=== PATIENT | female | born 1940 | race Caucasian/White ===

== ENCOUNTER 2020-10-03 10:08 | Inpatient (IN) ==
--- NOTE | 2020-10-03 10:20 | Emergency Department Note ---
Altered Mental Status HPI General Chief Complaint: Altered Mental Status Stated Complaint: altered mental Time Seen by Provider: 10/03/20 10:15 Source: patient, RN notes reviewed and old records reviewed Mode of arrival: EMS Limitations: altered mental status History of Present Illness HPI Narrative: Narrative: 80-year-old female was found on the floor this she was awake and alert conscious responding to verbal stimuli but was unable to stand up. Her last seen normal was night prior to arrival. Patient was transferred via EMS to emergency department. History is from EMS patient is unable to give history at this point in time. MD complaint: altered mental status, confusion, decreased responsiveness and weakness Onset (ago): day(s) (Last seen normal night prior to arrival) Severity: moderate Consistency of Symptoms: unknown Context: unknown Related Data Home Medications Medication Instructions Recorded Confirmed benazepril 20 mg tablet 20 mg PO BID tab 11/14/14 06/11/20 calcium carbonate 600 mg calcium 1,800 mg PO QDAY tab 11/14/14 06/11/20 (1,500 mg) tablet cholecalciferol (vitamin D3) 25 1,000 unit PO QDAY cap 11/14/14 06/11/20 mcg (1,000 unit) capsule omega-3 fatty acids-vitamin E 1,000 mg PO QDAY cap 11/14/14 06/11/20 1,000 mg capsule propafenone 150 mg tablet 225 mg PO Q8H 07/30/15 06/11/20 acetaminophen 1,000 mg PO Q6H PRN 10/03/20 10/03/20 divalproex [Depakote Sprinkles] 125 mg PO TID 10/03/20 10/03/20 furosemide 20 mg PO QAM 10/03/20 10/03/20 gabapentin 100 mg PO TID 10/03/20 10/03/20 polyethylene glycol 3350 [Miralax] 17 g PO QDAY 10/03/20 10/03/20 potassium chloride 10 meq PO QDAY 10/03/20 10/03/20 Previous Rx's Medication Instructions Recorded dexamethasone 6 mg tablet 6 mg PO QDAY #7 tab 03/20/20 diltiazem HCl 120 mg 120 mg PO BID #180 cap 04/09/20 capsule,extended release 24 hr, controlled lorazepam 0.5 mg tablet 0.5 mg PO BID PRN #60 tab 04/10/20 apixaban 5 mg tablet 5 mg PO Q12H #180 tab 04/23/20 clonidine HCl 0.1 mg tablet 0.1 mg PO BID #180 tab 04/23/20 chlorthalidone 25 mg tablet 25 mg PO QDAY #30 tab 06/11/20 Allergies Allergy/AdvReac Type Severity Reaction Status Date / Time Amoxicillin Allergy Severe Swelling Verified 06/11/20 15:14 of Lip/Tongue/Throat Review of Systems ROS ROS Narrative: Narrative: Limitations: ROS unobtainable due to patients medical condition PFSH Narrative Patient History Narrative: Narrative: Medical/Surgical/Family History All Active Problems (Updated 10/03/20 @ 13:36 by Sam Mckeon MD) CHF (congestive heart failure) (Acute) Pneumonia (Acute) Shingles (Acute) Cognitive impairment (Acute) Cervicalgia (Acute) Urinary tract infection (Acute) Hx of bladder cancer (Acute) Venous insufficiency (Acute) Hypertension (Acute) Weight loss (Acute) Erythrocytosis (Chronic) Subclavian artery stenosis, left (Chronic) Hot flashes due to menopause (Chronic) Arthralgia of right hip (Acute) care home current use of anticoagulant therapy (Chronic) Mild cognitive impairment (Chronic) On hormone replacement therapy (Chronic) Encounter for Health Maintenance Examination in Adult (Chronic) Eye Problem (Acute) Ecchymosis (Acute) History of tubal ligation (Acute) History of cystoscopy (Acute) History of colonoscopy (Acute) History of cardioversion (Acute) History of appendectomy (Acute) Contact with and exposure to tuberculosis (Acute) History of tobacco use (Acute) Osteopenia (Chronic) Hx of malignant neoplasm of urinary organ (Chronic) 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 Carotid bruit Left; asymptomatic. Stable US November 2010--every other year sequencing. Cervicalgia Cognitive impairment Colonic polyp 01/01/11 Colonoscopy--Dr. Emanuel--Essentially normal colon; H/O minor diverticular disease; past H/O adenomatous polyps. 5-year sequence. Contact with and exposure to tuberculosis Questionable exposure to tuberculosis in a cousin in the distant past. No clinical history for same. No previous skin testing; chest x-rays have been normal. Degenerative arthritis Knees and hips. Takes Aleve, No history of inflammatory arthritis. Diverticulitis of colon 01/01/11 Colonoscopy--Dr. Emanuel--Essentially normal colon; H/O minor diverticular disease; past H/O adenomatous polyps. 5-year sequence. Episode of probable clinical diverticulitis 12/2010. Dyspnea 06/2012; Mild decrease in exercise tolerance; exertional. Ecchymosis rt suborbital Encounter for Health Maintenance Examination in Adult Eye Problem rt suborbital eccymosis History of cardioversion 12/16/12 Successful cardioversion to sinus rhythm from atrial fibrillation. History of tobacco use Distant ex-smoker, stopping in 1994. Stable chest x-ray 2008. Immunizations up to date. Does not require routine screening. Hx of malignant neoplasm of urinary organ Hypertension Hypertension, essential Stable resting ECG 2008. ECG updated 06/25/12. care home current use of anticoagulant therapy Malignant neoplasm of posterior wall of urinary bladder last cysto 09/2016 Mild cognitive impairment inc ataxia On hormone replacement therapy Osteopenia Bone density 06/17/2004 Spine T-score -2.9. Bone Density 08/19/2007 Spine T- score -2; Hip T-score -1.8. On appropritate calcium and vitamin D. Vitamin D level 08/27/09 stable at 36.4 Venous insufficiency Surgical History History of appendectomy In the distant past. History of colonoscopy 01/01/11 Colonoscopy--Dr. Emanuel--Essentially normal colon; H/O minor diverticular disease; past H/O adenomatous polyps in 2002. 5-year sequence. History of cystoscopy History of tubal ligation Family History Unknown Dementia A number of older family members Essential hypertension Unspecified Pulmonary tuberculosis Cousin Social History Smoking Status: Never smoker Alcohol Intake Frequency: a few times a month Substance Use: does not use Exam Narrative Narrative: Narrative: General Limitations: altered mental status General appearance: Present lethargic Head Head: Present atraumatic, normocephalic and normal inspection Eye Eye: Present normal appearance, PERRL and EOMI; Absent scleral icterus and conjunctival injection ENT ENT: Present normal oropharynx and mucous membranes dry Neck Neck: Present normal inspection, full ROM, trachea midline and other (Positive JVD); Absent tenderness, lymphadenopathy and thyromegaly Chest Chest: Present normal inspection and symmetric chest wall rise; Absent tenderness Respiratory Respiratory: Present rales/crackles; Absent respiratory distress, wheezes, stridor, accessory muscle use and prolonged expiratory phase Cardiovascular Cardiovascular: Present regular rate, normal rhythm and systolic murmur; Absent diastolic murmur Adbominal Abdominal: Present soft; Absent distention, tenderness, guarding, rebound, rigidity, organomegaly and mass Extremities Extremities: Present full ROM, normal capillary refill, pedal edema and pretibial edema; Absent calf tenderness Back Back: Present normal inspection; Absent tenderness, CVA tenderness (R), CVA tenderness (L) and spinous process tenderness Expanded Neurological Patient oriented to: Present person Speech: Present fluid speech Motor strength - LUE: 5/5 Motor strength - RUE: 5/5 Motor strength - LLE: 5/5 Motor strength - RLE: 5/5 UPPER MOTOR NEURON EXAM: Babinski sign: Normal Coma Scale Eye Opening: To Voice Coma Scale Motor Response: Localizes to Pain Coma Scale Verbal Response: Confused Coma Scale Total: 12 Skin Skin: Present warm (WNL) and dry Course Vital Signs Vital signs: Vital Signs Pulse Rate 74 10/03/20 10:09 Respiratory Rate 16 10/03/20 10:09 Blood Pressure 146/74 10/03/20 10:09 Pulse Oximetry (%) 91 10/03/20 10:09 Pulse Rate 118 H 10/03/20 11:35 Respiratory Rate 20 10/03/20 11:32 Blood Pressure 131/88 10/03/20 11:32 Pulse Oximetry (%) 90 10/03/20 11:35 [facility] Narrative Medical decision making narrative: Narrative: Patient with congestive heart failure and pneumonia troponin. Patient's and A. fib on EKG with nonischemic current of injury. Patient received IV Lasix and after blood cultures IV Rocephin. Discussed patient with Dr. Garcia who graciously agreed to admission. Differential Diagnosis Differential Diagnosis: CVA TIA sepsis pneumonia congestive heart failure hypoglycemia hyperglycemi Medical Records Medical records reviewed: Yes I reviewed the patient's medical records. Lab Data Lab results reviewed: Yes I reviewed the patient's lab results. Lab results narrative: Sodium is 131 patient received Lasix IV patient's BNP is elevated to 2083 and troponin is elevated. Result diagrams: 10/03/20 10:39 10/03/20 10:39 Labs: Lab Results 10/03/20 10/03/20 10/03/20 Range/Units 10:20 10:39 10:39 WBC 8.0 (4.5-11.0) K/mcL RBC 4.02 (4.00-5.20) M/mcL Hgb 12.4 (12.0-15.0) g/dL Hct 37.7 (36.0-48.0) % MCV 93.8 (80.0-100.0) fL MCH 30.8 (26.0-34.0) pg MCHC 32.9 (31.0-36.0) g/dL RDW 14.1 (11.5-14.5) % Plt Count 246 (140-440) K/mcL MPV 10.2 (7.4-10.4) fL Neut % (Auto) 56.4 (38.0-78.0) % Lymph % (Auto) 21.2 (15.0-49.0) % [place] % (Auto) 19.1 H (1.0-12.0) % Eos % (Auto) 2.9 (0.0-7.0) % Baso % (Auto) 0.4 (0.0-2.0) % Lymph # (Auto) 1.69 (1.50-4.80) K/mcL [place] # (Auto) 1.52 H (0.10-0.90) K/mcL Eos # (Auto) 0.23 (0.00-0.70) K/mcL Baso # (Auto) 0.03 (0.00-0.20) K/mcL Absolute Neutrophils 4.49 (1.80-8.00) K/mcL VBG Lactic Acid (0.5-2.0) mmol/L Sodium 131 L (133-145) mmol/L Potassium 3.2 L (3.3-5.1) mmol/L Chloride 90 L (96-108) mmol/L Carbon Dioxide 31 H (22-30) mmol/L Anion Gap 10.0 (8.0-16.0) BUN 19 (8-23) mg/dL Creatinine 1.0 (0.6-1.1) mg/dL GFR Calculation 53 Glucose 93 (70-105) mg/dL Calcium 9.8 (8.6-10.4) mg/dL Total Bilirubin 0.3 (0.1-1.0) mg/dL AST 18 (<32) U/L ALT 10 (<40) U/L Alkaline Phosphatase 78 (39-117) U/L Total Creatine Kinase 75 (24-170) U/L Troponin T (<0.03) ng/mL NT-Pro-B Natriuret Pep 2085.0 H (<450.0) pg/mL Total Protein 6.8 (5.9-8.4) gm/dL Albumin 3.5 (3.2-5.2) gm/dL Globulin 3.3 (2.2-3.7) gm/dL Albumin/Globulin Ratio 1.1 (1.0-2.3) Urine Color Yellow Urine Appearance Clear (Clear) Urine pH 5.0 (5.0-9.0) Ur Specific [place] 1.020 (1.000-1.035) Urine Protein Negative (Negative) mg/dL Urine Glucose (UA) Negative (Negative) mg/dL Urine Ketones Trace A (Negative) mg/dL Urine Occult Blood Negative (Negative) malathi/mcL Urine Nitrate Negative (Negative) Urine Bilirubin Negative (Negative) mg/dL Urine Urobilinogen Normal mg/dL Ur Leukocyte Esterase Trace A (Negative) /ug Urine RBC < 1 (0-3) /hpf Urine WBC 3 (0-4) /hpf Ur Squamous Epith Cells < 1 (0-4) /hpf Urine Bacteria None (0) /hpf Hyaline Casts 35 H (0-2) /lph Urine Mucus Few A (None) /hpf Ur Culture Indicated? No 10/03/20 10/03/20 Range/Units 10:39 10:39 WBC (4.5-11.0) K/mcL RBC (4.00-5.20) M/mcL Hgb (12.0-15.0) g/dL Hct (36.0-48.0) % MCV (80.0-100.0) fL MCH (26.0-34.0) pg MCHC (31.0-36.0) g/dL RDW (11.5-14.5) % Plt Count (140-440) K/mcL MPV (7.4-10.4) fL Neut % (Auto) (38.0-78.0) % Lymph % (Auto) (15.0-49.0) % [place] % (Auto) (1.0-12.0) % Eos % (Auto) (0.0-7.0) % Baso % (Auto) (0.0-2.0) % Lymph # (Auto) (1.50-4.80) K/mcL [place] # (Auto) (0.10-0.90) K/mcL Eos # (Auto) (0.00-0.70) K/mcL Baso # (Auto) (0.00-0.20) K/mcL Absolute Neutrophils (1.80-8.00) K/mcL VBG Lactic Acid 1.4 (0.5-2.0) mmol/L Sodium (133-145) mmol/L Potassium (3.3-5.1) mmol/L Chloride (96-108) mmol/L Carbon Dioxide (22-30) mmol/L Anion Gap (8.0-16.0) BUN (8-23) mg/dL Creatinine (0.6-1.1) mg/dL GFR Calculation Glucose (70-105) mg/dL Calcium (8.6-10.4) mg/dL Total Bilirubin (0.1-1.0) mg/dL AST (<32) U/L ALT (<40) U/L Alkaline Phosphatase (39-117) U/L Total Creatine Kinase (24-170) U/L Troponin T 0.12 H* (<0.03) ng/mL NT-Pro-B Natriuret Pep (<450.0) pg/mL Total Protein (5.9-8.4) gm/dL Albumin (3.2-5.2) gm/dL Globulin (2.2-3.7) gm/dL Albumin/Globulin Ratio (1.0-2.3) Urine Color Urine Appearance (Clear) Urine pH (5.0-9.0) Ur Specific [place] (1.000-1.035) Urine Protein (Negative) mg/dL Urine Glucose (UA) (Negative) mg/dL Urine Ketones (Negative) mg/dL Urine Occult Blood (Negative) malathi/mcL Urine Nitrate (Negative) Urine Bilirubin (Negative) mg/dL Urine Urobilinogen mg/dL Ur Leukocyte Esterase (Negative) /ug Urine RBC (0-3) /hpf Urine WBC (0-4) /hpf Ur Squamous Epith Cells (0-4) /hpf Urine Bacteria (0) /hpf Hyaline Casts (0-2) /lph Urine Mucus (None) /hpf Ur Culture Indicated? Radiology Data Radiology results narrative: Head CT is with chronic ischemic changes no acute changes chest x-ray is right basilar infiltrate and congestive heart failure. EKG Data EKG #1: EKG attestation: Yes I reviewed and interpreted this EKG. Rate: normal (87) Rhythm: A.Fib Eleanor/QRS: RBBB and LAHB/LAFB Ectopy: PVC Interpretation: nonspecific ST-T wave changes Pulse Oximetry Data Pulse Ox %: 90 Interpretation: 90% on room air slightly hypoxic for this patient. Discharge Plan Patient/Caregiver Discharge Instructions Pt seen by DISPATCH MACHINE RUNNER/PA only: No Clinical Impression: Atrial fibrillation, CHF (congestive heart failure), Pneumonia Patient Disposition: Xfer As Inpt ([facility]) Follow up with: Jossue Mason ARNP [Primary Care Provider] - Prescriptions: No Action diltiazem HCl [DILT-XR] 120 mg capsule,ext.rel 24h degradable 120 mg PO BID Qty: 180 RF: 2 lorazepam 0.5 mg tablet 0.5 mg PO BID PRN (Reason: agitation) Qty: 60 RF: 1 Eliquis 5 mg tablet 5 mg PO Q12H Qty: 180 RF: 1 clonidine HCl 0.1 mg tablet 0.1 mg PO BID Qty: 180 RF: 1 calcium carbonate 600 mg (1,500 mg) tablet 1,800 mg PO QDAY RF: 0 cholecalciferol (vitamin D3) 1,000 unit capsule 1,000 unit PO QDAY RF: 0 benazepril 20 mg tablet 20 mg PO BID RF: 0 omega-3 fatty acids-vitamin E 1,000 mg capsule 1,000 mg PO QDAY RF: 0 dexamethasone 6 mg tablet 6 mg PO QDAY Qty: 7 RF: 0 chlorthalidone 25 mg tablet 25 mg PO QDAY Qty: 30 RF: 0 propafenone 150 mg tablet 225 mg PO Q8H RF: 0
[2020-10-03 11:49] LABS: Appearance,Urine Clear (Clear); Bilirubin,Urine Negative (Negative); Color,Urine Yellow; Culture Indicated,Urine No; Glucose,Urine (UA) Negative (Negative); Ketones,Urine Trace mg/dL (Negative); Leukocyte Esterase,Urine Trace /ug (Negative); Mucus,Urine FEW /hpf; Nitrate,Urine Negative (Negative); Protein,Urine Negative (Negative); Urine Blood Negative ery/mcL (Negative); Urine Hyaline Cast 35 /lph (0-2); Urine RBC < 1 /hpf (0-3); Urine Squamous Epithelial Cell < 1 /hpf (0-4); Urine WBC 3 /hpf (0-4); Urobilinogen,Urine Normal
[2020-10-03 11:50] LABS: Basophils # (Auto) 0.03 K/mcL (0.00-0.20); Basophils % (Auto) 0.4 % (0.0-2.0); Eosinophils # (Auto) 0.23 K/mcL (0.00-0.70); Eosinophils % (Auto) 2.9 % (0.0-7.0); Hematocrit 37.7 % (36.0-48.0); Hemoglobin 12.4 g/dL (12.0-15.0); Lymphocytes # (Auto) 1.69 K/mcL (1.50-4.80); Lymphocytes % (Auto) 21.2 % (15.0-49.0); Mean Cell Volume 93.8 fL (80.0-100.0); Mean Corpuscular HGB Conc 32.9 g/dL (31.0-36.0); Mean Platelet Volume 10.2 fL (7.4-10.4); Monocytes # (Auto) 1.52 K/mcL (0.10-0.90); Monocytes % (Auto) 19.1 % (1.0-12.0); Neutrophils % (Auto) 56.4 % (38.0-78.0); Platelet Count 246 K/mcL (140-440); RBC 4.02 M/mcL (4.00-5.20); Red Cell Distribution Width 14.1 % (11.5-14.5)
--- NOTE | 2020-10-03 11:51 | Cat Scan Report ---
CLINICAL INFORMATION: Altered mental status COMPARISON: Head CT 11/19/2016 TECHNIQUE: 2.5 mm helical slices were obtained in the skull base to vertex. Following reconstruction, axial reformatted images were reviewed at bone and parenchymal windows. The exam was performed using radiation dose optimization techniques including, but not limited to, automated exposure control, adjustment of the mA and/or kV according to patient size and use of iterative reconstruction technique. FINDINGS: The ventricles, sulci, fissures, and cisterns are symmetrically enlarged compatible with moderate age-related atrophy. The atrophy has worsened considerably since the comparison CT approximately four years ago. Extensive chronic ischemic changes in the deep cerebral white matter have also progressed.. There is no intracerebral hemorrhage, mass effect, edema or other acute finding. Bone windows show no osseous abnormality. IMPRESSION: Moderate atrophy with extensive chronic ischemic changes in the deep cerebral white matter progressing considerably since comparison study four years prior. No acute disease Interpreted and Authenticated by: Vicente De La Rosa 10/03/20
--- NOTE | 2020-10-03 11:55 | XRay Report ---
CLINICAL INFORMATION: Low P O2 COMPARISON: 06/11/2020 FINDINGS: The heart is moderately enlarged - increased. Mediastinum is unremarkable. Pulmonary vessels are mildly distended. Moderate right basilar infiltrate is developing. There is a 19 mm rounded pneumonia or nodule in the left upper lobe. This is new. No effusion IMPRESSION: Mild CHF. Moderate right basilar infiltrate 19 mm rounded pneumonia versus nodule in the left upper lobe. Suggest two-view upright chest x-ray when patient returns to clinical baseline in the next 2-3 weeks. Interpreted and Authenticated by: Vicente De La Rosa 10/03/20
[2020-10-03] MEDS ORDERED: diphenhydrAMINE 50 MG/ML VIAL IV ONE (12:01)
[2020-10-03] MEDS ORDERED: cefTRIAXone 1 GM VIAL IV ONE (12:01)
[2020-10-03 12:13] LABS: ALT/SGPT 10 U/L (<40); AST/SGOT 18 U/L (<32); Albumin 3.5 gm/dL (3.2-5.2); Albumin/Globulin Ratio 1.1 (1.0-2.3); Alkaline Phosphatase 78 U/L (39-117); Bilirubin,Total 0.3 mg/dL (0.1-1.0); Blood Urea Nitrogen 19 mg/dL (8-23); Calcium 9.8 mg/dL (8.6-10.4); Carbon Dioxide 31 mmol/L (22-30); Chloride 90 mmol/L (96-108); Creatine Kinase 75 U/L (24-170); Globulin 3.3 gm/dL (2.2-3.7); Glomerular Filtration Rate 53; Glucose 93 mg/dL (70-105)
[2020-10-03] MEDS ORDERED: FUROSEMIDE 40 MG/4 ML VIAL IV ONE (12:22)
--- NOTE | 2020-10-03 12:25 | EKG ---
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 Measurements Intervals [place] Rate: 78 P: [place]: QRS: 108 QRSD: 135 T: -8 QT: 417 QTc: 476 Interpretive Statements Atrial fibrillation Ventricular premature complex RBBB and LPFB Baseline wander in lead(s) I,II,aVR,aVL,aVF,V1,V2,V3,V4,V5,V6 NO PRIOR TRACING FOR COMPARISON ABNORMAL ECG Electronically Signed On 10-03-2020 12:24:46 PDT by Jamil Andersen M.D. /[id number]
--- NOTE | 2020-10-03 13:45 | EKG ---
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 Measurements Intervals [place] Rate: 83 P: [place]: QRS: 113 QRSD: 118 T: 13 QT: 413 QTc: 486 Interpretive Statements Atrial fibrillation Paired ventricular premature complexes Incomplete right bundle branch block and LPIB Nonspecific T abnormalities, lateral leads ST elevation, consider inferior injury Since previous ECG of 10-03-2020, 1029, SHORTER QRSD ABNORMAL ECG Electronically Signed On 10-03-2020 13:44:50 PDT by Jamil Andersen M.D. /[email or web address]/[id number]
--- NOTE | 2020-10-03 16:16 | Internal Med History&Physical ---
HPI History of Present Illness Patient information: Note initiated : 10/03/20 at 4:07 pm Service Date, if different from initiated Date: [] Patient: Britta Uribe a 80 y/o F admitted on for altered mental. Chief Complaint: Found on the floor History of present illness: Ms. Uribe is a 80 year old female with advanced dementia resident of a longterm home brought to emergency room after she was found down this morning. Her last seen normal was night prior to arrival. The patient was found on the floor this morning and she was awake and alert conscious responding to verbal stimuli but was unable to stand up. Patient brought to emergency room by EMS. At baseline she is alert oriented to her name only and had advanced dementia. Patient's son Brien and other family members at the bedside. Patient denies chest pain shortness of breath dizziness lightheadedness. She cannot give any history due to her advanced dementia. In the emergency room she was found to be in atrial fibrillation with RVR. Her CT scan of the head showed no acute finding. Chest x-ray showed moderate right basilar infiltrate. Patient has minimal elevation of troponin 0 0.12 and elevated BNP. She has history of systolic congestive heart failure Review of Systems ROS unobtainable: due to mental status Review of systems: Unable to obtain review of systems due to patient's advanced dementia. However she denies chest pain shortness of breath nausea vomiting abdominal pain, extremity pain. PFSH PFSH All Active Problems CHF (congestive heart failure) (Acute) Pneumonia (Acute) Shingles (Acute) Cognitive impairment (Acute) Cervicalgia (Acute) Urinary tract infection (Acute) Hx of bladder cancer (Acute) Venous insufficiency (Acute) Hypertension (Acute) Weight loss (Acute) Erythrocytosis (Chronic) Subclavian artery stenosis, left (Chronic) Hot flashes due to menopause (Chronic) Arthralgia of right hip (Acute) shelter current use of anticoagulant therapy (Chronic) Mild cognitive impairment (Chronic) On hormone replacement therapy (Chronic) Encounter for Health Maintenance Examination in Adult (Chronic) Eye Problem (Acute) Ecchymosis (Acute) History of tubal ligation (Acute) History of cystoscopy (Acute) History of colonoscopy (Acute) History of cardioversion (Acute) History of appendectomy (Acute) Contact with and exposure to tuberculosis (Acute) History of tobacco use (Acute) Osteopenia (Chronic) Hx of malignant neoplasm of urinary organ (Chronic) Malignant neoplasm of posterior wall of urinary bladder (Chronic) Hypertension, essential (Chronic) Dyspnea (Acute) Diverticulitis of colon (Acute) Degenerative arthritis (Acute) Colonic polyp (Acute) Carotid bruit (Acute) Atrial fibrillation (Chronic) Medical History Atrial fibrillation New onset first noted 06/2012. Carotid bruit Left; asymptomatic. Stable US November 2010--every other year sequencing. Cervicalgia Cognitive impairment Colonic polyp 01/01/11 Colonoscopy--Dr. Emanuel--Essentially normal colon; H/O minor diverticular disease; past H/O adenomatous polyps. 5-year sequence. Contact with and exposure to tuberculosis Questionable exposure to tuberculosis in a cousin in the distant past. No clinical history for same. No previous skin testing; chest x-rays have been normal. Degenerative arthritis Knees and hips. Takes Aleve, No history of inflammatory arthritis. Diverticulitis of colon 01/01/11 Colonoscopy--Dr. Emanuel--Essentially normal colon; H/O minor diverticular disease; past H/O adenomatous polyps. 5-year sequence. Episode of probable clinical diverticulitis 12/2010. Dyspnea 06/2012; Mild decrease in exercise tolerance; exertional. Ecchymosis rt suborbital Encounter for Health Maintenance Examination in Adult Eye Problem rt suborbital eccymosis History of cardioversion 12/16/12 Successful cardioversion to sinus rhythm from atrial fibrillation. History of tobacco use Distant ex-smoker, stopping in 1994. Stable chest x-ray 2008. Immunizations up to date. Does not require routine screening. Hx of malignant neoplasm of urinary organ Hypertension Hypertension, essential Stable resting ECG 2008. ECG updated 06/25/12. shelter current use of anticoagulant therapy Malignant neoplasm of posterior wall of urinary bladder last cysto 09/2016 Mild cognitive impairment inc ataxia On hormone replacement therapy Osteopenia Bone density 06/17/2004 Spine T-score -2.9. Bone Density 08/19/2007 Spine T- score -2; Hip T-score -1.8. On appropritate calcium and vitamin D. Vitamin D level 08/27/09 stable at 36.4 Venous insufficiency Surgical History History of appendectomy In the distant past. History of colonoscopy 01/01/11 Colonoscopy--Dr. Emanuel--Essentially normal colon; H/O minor diverticular disease; past H/O adenomatous polyps in 2002. 5-year sequence. History of cystoscopy History of tubal ligation Family History Unknown Dementia A number of older family members Essential hypertension Unspecified Pulmonary tuberculosis Cousin Social History household members: alone housing: house lives independently: Yes marital status: occupational status: retired occupation: Insurance alcohol intake frequency: a few times a month substance use type: does not use MEDS/ALLERGIES Home Medications and Allergies Home Medications Medication Instructions Recorded Confirmed Type benazepril 20 mg tablet 20 mg PO BID tab 11/14/14 10/03/20 History calcium carbonate 600 mg calcium 1,800 mg PO TID tab 11/14/14 06/11/20 History (1,500 mg) tablet cholecalciferol (vitamin D3) 25 1,000 unit PO QDAY cap 11/14/14 10/03/20 History mcg (1,000 unit) capsule omega-3 fatty acids-vitamin E 1,000 mg PO QDAY cap 11/14/14 10/03/20 History 1,000 mg capsule propafenone 150 mg tablet 225 mg PO Q8H 07/30/15 10/03/20 History dexamethasone 6 mg tablet 6 mg PO QDAY #7 tab 03/20/20 06/11/20 Rx diltiazem HCl 120 mg 120 mg PO BID #180 cap 04/09/20 10/03/20 Rx capsule,extended release 24 hr, controlled lorazepam 0.5 mg tablet 0.5 mg PO BID PRN #60 tab 04/10/20 10/03/20 Rx apixaban 5 mg tablet 5 mg PO Q12H #180 tab 04/23/20 10/03/20 Rx clonidine HCl 0.1 mg tablet 0.1 mg PO BID #180 tab 04/23/20 10/03/20 Rx chlorthalidone 25 mg tablet 25 mg PO QDAY #30 tab 06/11/20 10/03/20 Rx acetaminophen 1,000 mg PO Q6H PRN 10/03/20 10/03/20 History divalproex [Depakote Sprinkles] 125 mg PO TID 10/03/20 10/03/20 History furosemide 20 mg PO QAM 10/03/20 10/03/20 History gabapentin 100 mg PO TID 10/03/20 10/03/20 History polyethylene glycol 3350 [Miralax] 17 g PO QDAY 10/03/20 10/03/20 History potassium chloride 10 meq PO QDAY 10/03/20 10/03/20 History Allergies Allergy/AdvReac Type Severity Reaction Status Date / Time Amoxicillin Allergy Severe Swelling Verified 06/11/20 15:14 of Lip/Tongue/Throat EXAM Constitutional Vitals: Pulse Resp BP Pulse Ox 108 H 29 H 156/134 92 10/03/20 15:38 10/03/20 15:38 10/03/20 15:38 10/03/20 15:38 General appearance: average body habitus (Patient is calm), cooperative and no acute distress Head Head exam: Present atraumatic, normal inspection and normocephalic Eye Eye exam: Present EOMI, normal appearance and PERRL Neck Neck exam: Present full ROM and normal inspection Respiratory Additional comments: Fine basilar crackles bilaterally. No wheezing. No respiratory distress. No hypoxia. Cardiovascular Cardiovascular exam: Present normal rate and rhythm, +S1 and +S2; Absent diastolic murmur and systolic murmur GI/Abdominal GI/Abdominal exam: Present normal bowel sounds and soft; Absent hernia, mass, rebound and tenderness Extremities Exam Extremities exam: Present full ROM, normal capillary refill and normal inspection; Absent calf tenderness and joint swelling Back Exam Back exam: Present full ROM Neurological Exam Neurological exam: Present alert, altered, CN II-XII intact and reflexes normal Additional comments: Patient is awake. She is alert oriented to her name only. She moves all extremities. Cranial 2 through 12 grossly intact. Motor intact Psychiatric Psychiatric exam: Present normal affect and normal mood Skin Skin exam: Present dry, normal color and warm DATA Data Completed and Pending Labs: Labs from last 24 hours 10/03/20 10/03/20 10/03/20 13:36 10:39 10:39 WBC RBC Hgb Hct MCV MCH MCHC RDW Plt Count MPV Neut % (Auto) Lymph % (Auto) [place] % (Auto) Eos % (Auto) Baso % (Auto) Lymph # (Auto) [place] # (Auto) Eos # (Auto) Baso # (Auto) Absolute Neutrophils VBG Lactic Acid 1.4 Sodium Potassium Chloride Carbon Dioxide Anion Gap BUN Creatinine GFR Calculation Glucose Calcium Total Bilirubin AST ALT Alkaline Phosphatase Total Creatine Kinase Troponin T 0.12 H* 0.12 H* NT-Pro-B Natriuret Pep Total Protein Albumin Globulin Albumin/Globulin Ratio Urine Color Urine Appearance Urine pH Ur Specific Clark Urine Protein Urine Glucose (UA) Urine Ketones Urine Occult Blood Urine Nitrate Urine Bilirubin Urine Urobilinogen Ur Leukocyte Esterase Urine RBC Urine WBC Ur Squamous Epith Cells Urine Bacteria Hyaline Casts Urine Mucus Ur Culture Indicated? 10/03/20 10/03/20 10/03/20 10:39 10:39 10:20 WBC 8.0 RBC 4.02 Hgb 12.4 Hct 37.7 MCV 93.8 MCH 30.8 MCHC 32.9 RDW 14.1 Plt Count 246 MPV 10.2 Neut % (Auto) 56.4 Lymph % (Auto) 21.2 [place] % (Auto) 19.1 H Eos % (Auto) 2.9 Baso % (Auto) 0.4 Lymph # (Auto) 1.69 [place] # (Auto) 1.52 H Eos # (Auto) 0.23 Baso # (Auto) 0.03 Absolute Neutrophils 4.49 VBG Lactic Acid Sodium 131 L Potassium 3.2 L Chloride 90 L Carbon Dioxide 31 H Anion Gap 10.0 BUN 19 Creatinine 1.0 GFR Calculation 53 Glucose 93 Calcium 9.8 Total Bilirubin 0.3 AST 18 ALT 10 Alkaline Phosphatase 78 Total Creatine Kinase 75 Troponin T NT-Pro-B Natriuret Pep 2085.0 H Total Protein 6.8 Albumin 3.5 Globulin 3.3 Albumin/Globulin Ratio 1.1 Urine Color Yellow Urine Appearance Clear Urine pH 5.0 Ur Specific Clark 1.020 Urine Protein Negative Urine Glucose (UA) Negative Urine Ketones Trace A Urine Occult Blood Negative Urine Nitrate Negative Urine Bilirubin Negative Urine Urobilinogen Normal Ur Leukocyte Esterase Trace A Urine RBC < 1 Urine WBC 3 Ur Squamous Epith Cells < 1 Urine Bacteria None Hyaline Casts 35 H Urine Mucus Few A Ur Culture Indicated? No A/P Narrative A/P Narrative: 80 years old female with advanced dementia who lives in a longterm home brought to emergency room after she was found down in her apartment. #Found down. Suspect syncope. -No obvious signs or symptoms of trauma. CT scan of the head no acute finding -CPK 75. -Currently awake alert oriented to her name which is her baseline. Continue to monitor on telemetry # Pneumonia by CxR. No clinical indicator for Pneumonia. - CxR Moderate right basilar infiltrate - No fever, chills, Cough, Sputum, WBC. - I will hold on treating with Anbx for now. #Atrial fibrillation with rapid ventricular rate. -Patient has history of A. fib/a flutter in the past. She has history of cardioversion. -Her last echocardiogram in the system is from 2016 with normal ejection fraction. -Resume home diltiazem, propafenone and Eliquis. #Elevated BNP/troponin. -Likely rate related heart failure. Demand ischemia. EKG nonischemic. No acute finding -Continue Eliquis and Cardizem. -Discussed with patient's son Brien who does not want to proceed with any intervention. # Hypertension. Resume home benazepril and Cardizem and chlorthalidone # Hyponatremia. 131. Monitor. # Hypokalemia due to Diuretics. - Replace K and follow BMP # Advance Dementia. A&Ox name only. - Monitor. Start Seroquel 25mg po qhs to prevent delirium. DVT ppx. Eliquis. Code. DNR/DNI. POA. Son Brien. I discussed in detail with patient's son Brien who is POA. He does not want any aggressive treatment. Time Spent With Patient Time: Total time spent is greater than 50% in coordination of care (as documented) at patient's floor/unit and/or counseling patient:
[2020-10-03] MEDS ORDERED: LORazepam 0.5 MG TABLET PO PRN ×3 (16:32→22:00)
[2020-10-03] MEDS ORDERED: ACETAMINOPHEN 500 MG TABLET PO PRN (17:13)
[2020-10-03] MEDS ORDERED: ACETAMINOPHEN 325 MG TABLET PO PRN (18:27)
[2020-10-03] MEDS ORDERED: NON FORMULARY MEDICATION 1 DOSE MISCELL (Acetaminophen 1,000 MG) PO PRN (18:27)
[2020-10-03] MEDS ORDERED: ONDANSETRON 4 MG ODT TABLET SL PRN (18:27)
[2020-10-03] MEDS ORDERED: SENNOSIDES 1 TABLET PO PRN (18:27)
[2020-10-03] MEDS ORDERED: ONDANSETRON 4 MG/2 ML VIAL IV PRN (18:27)
[2020-10-03] MEDS ORDERED: DILTIAZEM 120 MG CAP.XL.24H PO SCH (21:00)
[2020-10-03] MEDS ORDERED: QUEtiapine 25 MG TABLET PO SCH (21:00)
[2020-10-03] MEDS ORDERED: LISINOPRIL 20 MG TABLET PO SCH (21:00)
[2020-10-03] MEDS ORDERED: cloNIDine HCL 0.1 MG TABLET PO SCH (21:00)
[2020-10-03] MEDS ORDERED: GABAPENTIN 100 MG CAPSULE PO SCH (21:00)
[2020-10-03] MEDS ORDERED: DIVALPROEX 125 MG CAP.SPRINK PO SCH (21:00)
[2020-10-03] MEDS ORDERED: APIXABAN 5 MG TABLET PO SCH (21:00)
[2020-10-03] MEDS: APIXABAN 5 MG TABLET PO SCH (21:59)
[2020-10-03] MEDS: DILTIAZEM 120 MG CAP.XL.24H PO SCH (21:59)
[2020-10-03] MEDS: DIVALPROEX 125 MG CAP.SPRINK PO SCH (21:59)
[2020-10-03] MEDS: cloNIDine HCL 0.1 MG TABLET PO SCH (21:59)
[2020-10-03] MEDS: LISINOPRIL 20 MG TABLET PO SCH (21:59)
[2020-10-03] MEDS ORDERED: PROPAFENONE HCL 225 MG PO SCH (22:00)
[2020-10-03] MEDS: 0.9 % SODIUM CHLORIDE 10 ML SYRINGE IV SCH (22:00)
[2020-10-03] MEDS: PROPAFENONE HCL 225 MG PO SCH (22:04)
[2020-10-04] MEDS: 0.9 % SODIUM CHLORIDE 10 ML SYRINGE IV SCH ×2 (06:39→13:05)
[2020-10-04] MEDS: PROPAFENONE HCL 225 MG PO SCH ×2 (06:40→13:02)
[2020-10-04 07:03] LABS: Blood Urea Nitrogen 18 mg/dL (8-23); Calcium 8.9 mg/dL (8.6-10.4); Carbon Dioxide 32 mmol/L (22-30); Chloride 94 mmol/L (96-108); Glomerular Filtration Rate 47; Glucose 103 mg/dL (70-105)
[2020-10-04] MEDS ORDERED: POTASSIUM CHLORIDE 10 MEQ TABLET PO SCH ×2 (08:00→09:00)
[2020-10-04] MEDS ORDERED: CHLORTHALIDONE 25 MG TABLET PO SCH ×2 (09:00)
[2020-10-04] MEDS ORDERED: POLYETHYLENE GLYCOL 3350 17 GM PACKET PO SCH ×2 (09:00)
[2020-10-04] MEDS: DIVALPROEX 125 MG CAP.SPRINK PO SCH ×2 (12:40→16:14)
[2020-10-04] MEDS: DILTIAZEM 120 MG CAP.XL.24H PO SCH (12:41)
[2020-10-04] MEDS: cloNIDine HCL 0.1 MG TABLET PO SCH (12:42)
[2020-10-04] MEDS: APIXABAN 5 MG TABLET PO SCH (12:42)
[2020-10-04] MEDS: GABAPENTIN 100 MG CAPSULE PO SCH ×2 (12:43→16:14)
--- NOTE | 2020-10-04 13:19 | Discharge Summary ---
Discharge Provider Provider Patient information: Note initiated : 10/04/20 at 1:17 pm Service Date, if different from initiated Date: [] Patient: Britta Uribe 80 y/o F admitted on 10/03/20 for altered mental. Chief Complaint: AMS Date of admission: 10/03/20 17:04 Discharge date: 10/04/20 Primary care physician: DASH Schmid Consults: 10/03/20 12:58 Consult to Physician [CONS] Stat Comment: Consulting Provider: Rocco Kimble Reason For Exam: Physician to Consult Discharge Meds Discharge Medications Home Medications calcium carbonate 600 mg calcium (1,500 mg) tablet 1,800 mg PO TID tab 11/14/14 [History Confirmed 10/04/20 Last Taken Unknown] propafenone 150 mg tablet 225 mg PO Q8H 07/30/15 [History Confirmed 10/04/20 Last Taken 10/03/20 06:28] diltiazem HCl 120 mg capsule,extended release 24 hr, controlled 120 mg PO BID #180 cap 04/09/20 [Rx Confirmed 10/04/20 Last Taken Unknown] lorazepam 0.5 mg tablet 0.5 mg PO BID PRN #60 tab 04/10/20 [Rx Confirmed 10/04/20 Last Taken Unknown] chlorthalidone 25 mg tablet 25 mg PO QDAY #30 tab 06/11/20 [Rx Confirmed 10/04/20 Last Taken Unknown] acetaminophen 1,000 mg PO Q6H PRN 10/03/20 [History Confirmed 10/04/20 Last Taken Unknown] divalproex [Depakote Sprinkles] 125 mg PO TID 10/03/20 [History Confirmed 10/04/20 Last Taken Unknown] gabapentin 100 mg PO TID 10/03/20 [History Confirmed 10/04/20 Last Taken Unknown] polyethylene glycol 3350 [Miralax] 17 g PO QDAY 10/03/20 [History Confirmed 10/04/20 Last Taken Unknown] COURSE Hospital Course Hospital course: 80 years old female with advanced dementia who lives in a shelter home brought to emergency room after she was found down in her apartment. Pt's Son Brien who is the POA decided to place her mother in Hospice and Pt Dced back to SNF with Hospice care. Her short hospital course is as following. # Found down. Suspect syncope. - No obvious signs or symptoms of trauma. CT scan of the head no acute finding - CPK 75. - Currently awake alert oriented to her name which is her baseline. # Pneumonia by CxR. No clinical indicator for Pneumonia. - CxR Moderate right basilar infiltrate - No fever, chills, Cough, Sputum, WBC. - No Indication for Rx with Anbx . pt remained Afebrile and O2 sat is >94%. #Atrial fibrillation with rapid ventricular rate. -Patient has history of A. fib/a flutter in the past. She has history of cardioversion. -Her last echocardiogram in the system is from 2016 with normal ejection fraction. -Cont home diltiazem, propafenone since RVR makes pt uncomfortable. But Dc Eliquis Since on hospice. #Elevated BNP/troponin. 0.16. -Likely rate related heart failure. Demand ischemia. EKG nonischemic. No acute finding -Continue Cardizem. -Discussed with patient's son Brien who does not want to proceed with any intervention. # Hypertension. Resume home Cardizem and chlorthalidone for comfort. Dc Benzopril. # Hyponatremia. 131. Monitor. # Hypokalemia due to Diuretics. # Advance Dementia. A&Ox name only. Disposition: Patient discharged back to her SNF with hospice care Condition on discharge: Hemodynamically stable. Tolerated p.o. Discharge activity: As tolerated Discharge diet: Regular. Pleasure food Discharge medication: See med reconciliation form Discharge follow-up: Hospice Discharge diagnosis: As above Time Spent with Patient Time attestation: Total time spent providing and/or coordinating discharge services: EXAM Constitutional Vitals: Temp Pulse Resp BP Pulse Ox 97.6 F 72 20 119/61 90 10/04/20 08:00 10/04/20 08:00 10/04/20 08:00 10/04/20 08:00 10/04/20 08:00 Discharge Data Data Completed and Pending Labs on day of discharge: Labs from last 24 hours 10/04/20 10/04/20 10/03/20 05:43 05:43 13:36 Sodium 136 Potassium 3.1 L Chloride 94 L Carbon Dioxide 32 H Anion Gap 10.0 BUN 18 Creatinine 1.1 GFR Calculation 47 Glucose 103 Calcium 8.9 Troponin T 0.16 H* 0.12 H* Preliminary micro results at discharge 10/03/20 10:45 Blood Culture - Preliminary Blood 10/03/20 10:39 Blood Culture - Preliminary Blood Discharge Plan Patient/Caregiver Discharge Instructions Activity: increase activity as tolerated Diet: Regular Diet Prescriptions: Continued diltiazem HCl [DILT-XR] 120 mg capsule,ext.rel 24h degradable 120 mg PO BID Qty: 180 RF: 2 lorazepam 0.5 mg tablet 0.5 mg PO BID PRN (Reason: agitation) Qty: 60 RF: 1 calcium carbonate 600 mg (1,500 mg) tablet 1,800 mg PO TID RF: 0 chlorthalidone 25 mg tablet 25 mg PO QDAY Qty: 30 RF: 0 propafenone 150 mg tablet 225 mg PO Q8H RF: 0 polyethylene glycol 3350 [Miralax] 17 gram/dose Powder 17 g PO QDAY RF: 0 divalproex [Depakote Sprinkles] 125 mg Capsule, Delayed Rel Sprinkle 125 mg PO TID RF: 0 acetaminophen 500 mg Capsule 1,000 mg PO Q6H PRN (Reason: Pain) RF: 0 gabapentin 100 mg Tablet 100 mg PO TID RF: 0 Discontinued Eliquis 5 mg tablet 5 mg PO Q12H Qty: 180 RF: 1 clonidine HCl 0.1 mg tablet 0.1 mg PO BID Qty: 180 RF: 1 cholecalciferol (vitamin D3) 1,000 unit capsule 1,000 unit PO QDAY RF: 0 benazepril 20 mg tablet 20 mg PO BID RF: 0 omega-3 fatty acids-vitamin E 1,000 mg capsule 1,000 mg PO QDAY RF: 0 dexamethasone 6 mg tablet 6 mg PO QDAY Qty: 7 RF: 0 potassium chloride 10 mEq Tablet Extended Release 10 meq PO QDAY RF: 0 furosemide 20 mg Tablet 20 mg PO QAM RF: 0 Follow Up Plan Follow up with: Jossue Mason ARNP [Primary Care Provider] - Patient Disposition: Hospice - Medical Facility Discharge Orders: Discharge Order (Routine); Ordered 10/04/20 Ordered By: Rocco Kimble QUALITY VTE Deep Vein Thrombosis/Pulmonary Embolism Present on Admission: No
[2020-10-04] MEDS: LISINOPRIL 20 MG TABLET PO SCH (13:32)
== END 2020-10-04 16:55 | disposition hospice, inpatient (51) | DRG 312 ==
LOC: ED 10:08 → MEDSUR 17:04
PROVIDERS: ADMIT Internal Medicine; ATTEND Internal Medicine